=== PATIENT | female | born 1970 | race Caucasian/White ===

== ENCOUNTER → 2016-11-10 | Outpatient (CLI) | payer OTHER ==
--- NOTE | 2016-11-11 08:20 | MM ---
Reason for exam: screening (asymptomatic). Last mammogram was performed 1 year ago. History: Patient history of other cancer and is nulliparous. Taking hormonal contraceptives for 27 years beginning at age 19. Physical Findings: A clinical breast exam by your physician is recommended on an annual basis and results should be correlated with mammographic findings. MG 3D Screening Mammo W/Cad Bilateral CC and MLO view(s) were taken. Prior study comparison: November 04, 2015, bilateral MG 3d screening mammo w/cad. November 02, 2014, bilateral MG screening mammo w CAD. Finding: There is a 7 mm high density, oval mass in the right breast seen only on CC view, 5.2cm from the nipple. New finding since November 04, 2015 and November 02, 2014. ASSESSMENT: Incomplete: need additional imaging evaluation, BI-RAD 0 RECOMMENDATION: Ultrasound of the right breast. [facility] will attempt to contact patient to return for ultrasound.
== END | disposition home or self-care (01) ==
LOC: RADMAMWWP 10:49
PROVIDERS: ATTEND Family Medicine
DX: Z12.31 Encounter for screening mammogram for malignant neoplasm of breast (principal)
CPT/HCPCS: 77063; G0202

== ENCOUNTER → 2016-11-17 | Outpatient (CLI) | payer OTHER ==
--- NOTE | 2016-11-18 07:37 | USB ---
Reason for exam: additional evaluation requested from abnormal screening. History: Patient history of other cancer and is nulliparous. Taking hormonal contraceptives for 27 years beginning at age 19. Physical Findings: Nurse Summary: 0.5cm round nodule soft, movable right breast 1 o'clock (nurse mm). US Breast Workup Limited RT Right breast ultrasound demonstrates a 3 x 2 x 3mm lesion too small to characterize at 10 o'clock, 5.2cm from nipple. These results were verbally communicated with the patient and result sheet given to the patient on 11/17/16. ASSESSMENT: Benign, BI-RAD 2 RECOMMENDATION: Return to routine screening mammogram schedule for both breasts.
== END | disposition home or self-care (01) ==
LOC: RADUSWWP 14:15
PROVIDERS: ATTEND Family Medicine
DX: R92.8 Other abnormal and inconclusive findings on diagnostic imaging of breast (principal)

== ENCOUNTER 2017-07-14 13:34 | Inpatient (IN) | payer OTHER ==
[2017-07-14] MEDS ORDERED: NITROGLYCERIN SL TABS 0.4 MG TAB SUBLINGUAL PRN (19:25)
[2017-07-14] MEDS ORDERED: SODIUM CHLORIDE 0.9% 1,000 ML in EMPTY BAG 1 BAG IV ONE (19:25)
[2017-07-14 20:20] LABS: Basophils % (A) 0 %; CHCM 32.2; Eosinophils # (A) 0.1 k/uL (0-0.7); Eosinophils % (A) 1 %; HCT 46.3 % (34.0-46.0); HDW 2.24; Luc # (Auto) 0.18; Luc % (Auto) 1; Lymphocytes # (A) 0.7 k/uL (1.0-4.8); Lymphocytes % (A) 3 %; MCH 32.2 pg (25.0-35.0); MCHC 32.3 g/dL (31.0-37.0); MCV 99.8 fL (80.0-100.0); Mean Platelet Volume 7.3; Monocytes # (A) 0.9 k/uL (0-1.0); Monocytes % (A) 5 %; Neutrophils # (A) 17.8 k/uL (1.3-7.7); Neutrophils % (A) 90 %; RBC 4.64 m/uL (3.80-5.40); RDW 13.8 % (11.5-15.5); WBC 19.6 k/uL (3.8-10.6); WBC (Perox) 19.76
[2017-07-14 20:21] LABS: INR 1.2 (<1.2); Prothrombin Time 11.7 sec (9.0-12.0)
[2017-07-14 20:22] LABS: Anion Gap 11 mmol/L; Blood Urea Nitrogen 33 mg/dL (7-17); Calcium 10.3 mg/dL (8.4-10.2); Carbon Dioxide 27 mmol/L (22-30); Chloride 102 mmol/L (98-107); Glucose 149 mg/dL (74-99); Non-African American GFR(MDRD) >60 (>60 ml/min/1.73 sqM); Potassium 3.9 mmol/L (3.5-5.1); Sodium 140 mmol/L (137-145)
[2017-07-14 20:24] VITALS: BMI 24.6
[2017-07-14 21:26] LABS: Glucose,Whole Blood 132 mg/dL (75-99)
[2017-07-14] MEDS ORDERED: guaiFENesin 600 MG TABLET.ER PO PRN (21:33)
[2017-07-14] MEDS: METOPROLOL TARTRATE 12.5 MG TAB PO SCH (21:47)
[2017-07-14] MEDS: HEPARIN SODIUM,PORCINE 5,000 UNIT/ML 1 ML VIAL SQ SCH (21:48)
[2017-07-14] MEDS: SERTRALINE 50 MG TAB PO SCH (23:51)
[2017-07-14] MEDS: methylPREDNISolone SOD SUCCI 40 MG/ML 1 ML VIAL IV SCH (23:54)
[2017-07-15 06:00] LABS: Glucose,Whole Blood 163 mg/dL (75-99)
[2017-07-15] MEDS ORDERED: ASPIRIN 325 MG TAB PO ONE (06:00)
[2017-07-15] MEDS ORDERED: ATORVASTATIN 80 MG TAB PO ONE (06:00)
[2017-07-15] MEDS: METOPROLOL TARTRATE 12.5 MG TAB PO SCH ×2 (06:22→20:45)
[2017-07-15] MEDS: LOSARTAN 25 MG TAB PO SCH (06:23)
[2017-07-15] MEDS: INSULIN LISPRO (humaLOG) 300 UNIT/3 ML VIAL SQ SCH ×5 (06:25→20:45)
[2017-07-15] MEDS: HEPARIN SODIUM,PORCINE 5,000 UNIT/ML 1 ML VIAL SQ SCH ×2 (07:54→20:45)
[2017-07-15] MEDS: methylPREDNISolone SOD SUCCI 40 MG/ML 1 ML VIAL IV SCH (07:55)
[2017-07-15] MEDS: LEVOFLOXACIN 500 MG TAB PO SCH (07:55)
[2017-07-15] MEDS: BUDESONIDE 0.5 MG/2 ML NEBU INHALATION SCH ×2 (08:04→20:11)
[2017-07-15] MEDS: IPRATROPIUM-ALBUTEROL 3 ML NEB INHALATION SCH ×4 (08:04→20:11)
[2017-07-15] MEDS ORDERED: BUDESONIDE 0.5 MG/2 ML NEBU INHALATION SCH (09:00)
[2017-07-15] MEDS ORDERED: fentaNYL (PF) 50 MCG/ML 2 ML AMP ONE (09:05)
[2017-07-15] MEDS ORDERED: MIDAZOLAM 2 MG/2 ML VIAL ONE (09:05)
[2017-07-15] MEDS ORDERED: LIDOCAINE 2% INJ 20 MG/ML (20 ML MDV) ONE (09:05)
[2017-07-15] MEDS ORDERED: MIDAZOLAM 2 MG/2 ML VIAL IVP ONE (09:08)
[2017-07-15] MEDS ORDERED: fentaNYL (PF) 50 MCG/ML 2 ML AMP IV ONE (09:08)
[2017-07-15] MEDS ORDERED: LIDOCAINE 2% INJ 20 MG/ML SQ ONE (09:11)
[2017-07-15] MEDS ORDERED: IV FLUID CONTINUATION 900 ML IV ONE (09:11)
[2017-07-15] MEDS ORDERED: IOHEXOL 350 MG/ML 125ML BOTTLE INJ ONE (09:20)
[2017-07-15] MEDS ORDERED: RX INFO: IV CONTRAST WAS GIVEN 1 EACH MISC MISCELLANE PRN (09:27)
[2017-07-15] MEDS ORDERED: SODIUM CHLORIDE 0.9% 1,000 ML IV SCH (09:30)
--- NOTE | 2017-07-15 09:37 | P.OP ---
Date of Procedure: 07/15/17 Preoperative Diagnosis: Cardiomyopathy with congestive heart failure Postoperative Diagnosis: Nonischemic cardiomyopathy Normal coronary arteries Procedure(s) Performed: [facility] [place] [facility] Anesthesia: MAC (Total sedation time is 15 minutes) Operative Findings: Referring Physician: Aura Indication: Cardiomyopathy with congestive heart failure Procedure Note: After obtaining informed consent left heart catheterization and coronary angiogram were performed via the right femoral artery using standard Priti catheters. Patient tolerated the procedure well without any obvious immediate complications. A femoral angiogram was obtained and Angio-Seal was deployed for hemostasis. Findings: Hemodynamics: Left ventricular end-diastolic pressure is 30 mm there is no significant gradient across aortic valve Left Ventriculogram: Not performed Angiographic Data:] #1 Left Main Coronary Artery: Normal size vessel and is free of stenosis #2 Left Anterior Descending Coronary Artery: Normal vessel and diagonal branches are free of stenosis as is the LAD #3 Circumflex Coronary Artery: Nondominant vessel and is free of stenosis #4 Right Coronary Artery: Large dominant vessel and is free of stenosis Conclusions: #1: Normal coronary arteries #2: Elevated left ventricular end-diastolic pressure Plan: Patient has nonischemic cardiomyopathy this could be due to idiopathic dilated cardiomyopathy tachycardia mediated cardiomyopathy could be related to recent stress with the of her mother and a friend or could be due to the bronchitis that she had Her management is going to be in the form of beta blockers steven inhibitors and Lanoxin and diuretics . I will reassess her LV function 6 months later and if she still has LV dysfunction she will need AICD.
[2017-07-15] MEDS: POTASSIUM CHLORIDE ER 20 MEQ TAB.ER PO SCH (11:30)
[2017-07-15] MEDS: FUROSEMIDE 40 MG TAB PO SCH (11:30)
[2017-07-15] MEDS: DIGOXIN 250 MCG TAB PO SCH (11:31)
[2017-07-15 11:57] LABS: Glucose,Whole Blood 176 mg/dL (75-99)
--- NOTE | 2017-07-15 12:28 | P.HPIM ---
History of Present Illness H&P Date: 07/15/17 Chief Complaint: shortness of breath This is a 46-year-old Cacasian female patient of Dr. Nicolle Corcoran with history of generalized anxiety disorder, recurrent depression. She initially presesnted to [facility] from Dr. NAVEEN Newton's office with dyspnea and productive cough. She follows with Dr. NAVEEN Newton and underwent bronchoscopy on July 07. She has been treated as an outpatient with antibiotics and steroids for pneumonia in April. She was admitted to [facility] for acute hypoxic respiratory failure with sepsis due to pneumonia and started on IV antibiotics with Levaquin and Rocephin, IV steroids and nebulizer treatments. CTA was done on 07/12 with suggested of perihilar infiltrates suggesting atypical pneumonia but pulmonary edema could not be excluded. She was seen by cardiology for fluid overload and echo showed EF of 30%. Cardiology recommended transfer to [facility] for heart catheterization. Patient cardiac cath suggested no coronary artery disease but increased end-diastolic pressure likely secondary to nonischemic cardiomyopathy either related to tachycardia or stress as patient has just lost her mother and a friend in the past month. On my evaluation, patient was free of chest pain, denies any shortness of breath or productive cough. Patient was laying flat in bed post cardiac catheterization. She felt tired but denies any dizziness. Patient did well post cardiac catheterization. Patient states she has been healthy most of her life but for the past 1 month she has been suffering for pneumonia. Prior to coming to the hospital she was on vacation as her employer told her to take some rest. On questioning of stress, patient didn't want to talk about this topic, states she has lost her best friend and her mother in the past month and is taking medication to deal with her anxiety. She requested me to change the topic. Patient denies any depression but is eager to be released from the hospital Review of Systems Constitutional: Denies chills, Denies fever, Denies lethargy, Denies malaise, Denies poor appetite, Denies weakness, Denies weight loss Eyes: denies decreased vision, denies diplopia, denies discharge, denies pain Ears: deny: decreased hearing Ears, nose, mouth and throat: Denies dental pain, Denies headache, Denies nasal discharge, Denies nose pain Cardiovascular: Denies chest pain, Denies decreased exercise tolerance, Denies edema, Denies high blood pressure, Denies irregular heart beat, Denies palpitations, Denies paroxysmal nocturnal dyspnea, Denies rapid heart beat, Denies shortness of breath Respiratory: Denies congestion, Denies cough, Denies cough with sputum, Denies dyspnea, Denies home oxygen, Denies wheezing Gastrointestinal: Denies abdominal pain, Denies change in bowel habits, Denies coffee ground emesis, Denies early satiety, Denies excessive gas, Denies heartburn, Denies hematemesis, Denies hematochezia, Denies loss of appetite, Denies nausea, Denies vomiting Genitourinary: Denies dysuria, Denies flank pain, Denies kidney stones, Denies menorrhagia, Denies urgency, Denies urinary frequency Musculoskeletal: Denies gait dysfunction, Denies limitation of motion, Denies morning stiffness, Denies muscle cramps Integumentary: Denies rash, Denies wounds, Denies brittle nails, Denies change in hair/nails, Denies darkening of skin Neurological: Denies balance difficulties, Denies change in speech, Denies double vision, Denies gait dysfunction, Denies loss of vision, Denies motor disturbance, Denies numbness, Denies paralysis, Denies paresthesias, Denies seizures Psychiatric: Denies anxiety, Denies depression Endocrine: Denies excessive sweating, Denies excessive thirst, Denies high blood sugars, Denies palpitations Hematologic/Lymphatic: Denies easy bruising, Denies lymphadenopathy Past Medical History Past Medical History: Heart Failure Additional Past Medical History / Comment(s): blood clots in the skin started last May History of Any Multi-Drug Resistant Organisms: None Reported Past Surgical History: No Surgical Hx Reported Past Anesthesia/Blood Transfusion Reactions: No Reported Reaction Past Psychological History: Depression Smoking Status: Current every day smoker (patient smokes 1 pack a day for 25 years and hasn't smoked since last 2 week and would like to continue it.) Past Alcohol Use History: None Reported Past Drug Use History: None Reported - Past Family History Mother Family Medical History: Cancer (endometrial cancer, at the age of 74), Diabetes Mellitus Additional Family Medical History / Comment(s): CABG Father Family Medical History: Coronary Artery Disease (CAD) (coronary artery disease at age 75) Additional Family Medical History / Comment(s): Stents Medications and Allergies Home Medications Medication Instructions Recorded Confirmed Type Albuterol Inhaler [Ventolin Hfa 2 puff INHALATION RT-Q6H PRN 07/14/17 07/14/17 History Inhaler] Beclomethasone Dip 80 Mcg/Puff 1 puff INHALATION RT-BID 07/14/17 07/14/17 History [Qvar 80 mcg] Biotin 5 mg PO DAILY 07/14/17 07/14/17 History Microgestin Unknown Dose 1 tab PO DAILY 07/14/17 07/14/17 History Sertraline HCl [Zoloft] 50 mg PO DAILY 07/14/17 07/14/17 History Allergies Allergy/AdvReac Type Severity Reaction Status Date / Time No Known Allergies Allergy Verified 07/14/17 21:05 Physical Exam Vitals: Vital Signs Temp Pulse Pulse Resp BP Pulse Ox 07/15/17 08:18 104 H 07/15/17 08:09 98.0 F 99 16 113/79 97 07/15/17 08:05 104 H 07/15/17 08:00 98.0 F 99 16 113/79 97 07/15/17 04:00 97.3 F L 100 16 112/76 97 07/14/17 20:04 97.0 F L 103 H 20 113/67 95 Intake and Output 07/14/17 07/15/17 07/15/17 22:59 06:59 14:59 Intake Total 400 Balance 400 Intake: Intake, IV Titration 400 Amount Sodium Chloride 0.9% 1, 400 000 ml In Empty Bag 1 bag @ 1 ML/KG/HR 58.5 mls/hr IV .Q17H6M ONE Rx#: [id number] Other: Voiding Method Toilet Toilet # Voids 1 Weight 57.153 kg 58.5 kg - Constitutional General appearance: cooperative, no acute distress, obese - EENT Eyes: anicteric sclerae, PERRLA, normal appearance ENT: hearing grossly normal - Neck Neck: no lymphadenopathy, normal ROM, no other, no rigidity, no stridor, no thyromegaly - Respiratory Respiratory: bilateral: CTA, negative: diminished, dullness, rales, rhonchi - Cardiovascular Rhythm: regular Heart sounds: normal: S1, S2 Abnormal Heart Sounds: no systolic murmur, no diastolic murmur, no rub, no S3 Gallop, no S4 Gallop, no click, no other Site of catheterization in the right groin appeared normal with no signs of bleeding - Gastrointestinal General gastrointestinal: normal bowel sounds, soft - Integumentary Integumentary: no rash - Neurologic Neurologic: CNII-XII intact - Musculoskeletal Musculoskeletal: gait normal, strength equal bilaterally - Psychiatric Psychiatric: A&O x's 3, appropriate affect Results CBC & Chem 7: 07/14/17 19:57 07/14/17 19:57 Labs: Abnormal Lab Results - Last 24 Hours (Table) 07/14/17 07/14/17 07/14/17 Range/Units 19:57 19:57 19:57 WBC 19.6 H (3.8-10.6) k/uL Hct 46.3 H (34.0-46.0) % Plt Count 467 H (150-450) k/uL Neutrophils # 17.8 H (1.3-7.7) k/uL Lymphocytes # 0.7 L (1.0-4.8) k/uL INR 1.2 H (<1.2) BUN 33 H (7-17) mg/dL Glucose 149 H (74-99) mg/dL POC Glucose (mg/dL) (75-99) mg/dL Calcium 10.3 H (8.4-10.2) mg/dL 07/14/17 07/15/17 Range/Units 21:03 05:58 WBC (3.8-10.6) k/uL Hct (34.0-46.0) % Plt Count (150-450) k/uL Neutrophils # (1.3-7.7) k/uL Lymphocytes # (1.0-4.8) k/uL INR (<1.2) BUN (7-17) mg/dL Glucose (74-99) mg/dL POC Glucose (mg/dL) 132 H 163 H (75-99) mg/dL Calcium (8.4-10.2) mg/dL Thrombosis Risk Factor Assmnt - DVT/VTE Prophylaxis DVT/VTE Prophylaxis: Pharmacologic Prophylaxis ordered - Choose All That Apply Any of the Below Risk Factors Present?: Yes Each Factor Represents 1 point: Age 41-60 years Thrombosis Risk Factor Assessment Total Risk Factor Score: 1 Thrombosis Risk Factor Assessment Level: Low Risk Assessment and Plan Plan: Acute respiratory failure, likely secondary to bilateral atypical pneumonia with concern for pulmonary edema along with hypersensitivity pneumonitis - Patient was treated with Levaquin and Rocephin for the pneumonia - DC Rocephin, continue Levaquin - Patient has no wheezing on examination, Solu-Medrol discontinued patient switched to prednisone today - Continue duo nebs every 6 hours when necessary shortness of breath - Continue incentive spirometry - Continue Mucinex 600 every 12 - Pulmicort 0.5 mg every 12 hours - Patient is a smoker, and counseled on quitting smoking but patient states she will resume it on discharge = Continue Lasix 40 mg daily for presumed pulmonary edema from heart failure Nonischemic cardiomyopathy with EF 30% - Likely related to stress cardiomyopathy other differential include tachycardia induced cardiomyopathy. Patient has just lost a family member in the past 1 month and is under a lot of stress - Cardiac catheterization done on 07/15 suggested no coronary artery disease but increased end diastolic pressures - Continue digoxin 250 g daily, aspirin 81 mg daily, atorvastatin 40 mg daily, losartan 25 mg by mouth daily, metoprolol 12.5 mg by mouth twice daily - Continue Lasix 40 mg by mouth daily - Continue medical management for the next 6 months followed by appointment with Dr. Pina for consideration of AICD if no improvement in the cardiac function Nicotine dependence quit 2 weeks ago - Patient plans to resume it post discharge - Patient counseled on the risk associated with the continuation of the smoking but would like to continue it post discharge regardless Depression - Continue Zoloft GI prophylaxis Continue Pepcid by mouth daily DVT prophylaxis Continue mechanical prophylaxis with IVC Disposition likely discharge tomorrow after reviewing patient's labs and physical examination.
[2017-07-15] MEDS: predniSONE 20 MG TAB PO SCH (13:08)
[2017-07-15 20:45] LABS: Glucose,Whole Blood 275 mg/dL (75-99)
[2017-07-15] MEDS: SERTRALINE 50 MG TAB PO SCH (20:45)
[2017-07-16 03:35] VITALS: RESP 16
[2017-07-16] MEDS: INSULIN LISPRO (humaLOG) 300 UNIT/3 ML VIAL SQ SCH ×2 (06:14→11:55)
[2017-07-16 06:22] LABS: Glucose,Whole Blood 111 mg/dL (75-99)
[2017-07-16 06:43] LABS: Basophils % (A) 0 %; CH 32.3; CHCM 32.3; Eosinophils % (A) 0 %; HCT 44.1 % (34.0-46.0); HDW 2.21; HGB 13.7 gm/dL (11.4-16.0); Luc # (Auto) 0.09; Luc % (Auto) 1; Lymphocytes # (A) 1.8 k/uL (1.0-4.8); Lymphocytes % (A) 14 %; MCH 31.2 pg (25.0-35.0); MCHC 31.1 g/dL (31.0-37.0); MCV 100.5 fL (80.0-100.0); Macrocytosis Slight; Mean Platelet Volume 8.7; Monocytes # (A) 0.8 k/uL (0-1.0); Monocytes % (A) 6 %; Neutrophils # (A) 9.8 k/uL (1.3-7.7); Neutrophils % (A) 78 %; RBC 4.38 m/uL (3.80-5.40); RDW 14.5 % (11.5-15.5); WBC 12.5 k/uL (3.8-10.6); WBC (Perox) 12.49
[2017-07-16 06:57] LABS: ALT 28 U/L (9-52); AST 11 U/L (14-36); Alkaline Phosphatase 65 U/L (38-126); Anion Gap 8 mmol/L; Blood Urea Nitrogen 25 mg/dL (7-17); Calcium 9.2 mg/dL (8.4-10.2); Carbon Dioxide 24 mmol/L (22-30); Chloride 107 mmol/L (98-107); Glucose 124 mg/dL (74-99); Non-African American GFR(MDRD) >60 (>60 ml/min/1.73 sqM); Potassium 4.7 mmol/L (3.5-5.1); Sodium 139 mmol/L (137-145); Total Bilirubin 0.3 mg/dL (0.2-1.3); Total Protein 5.7 g/dL (6.3-8.2)
[2017-07-16] MEDS: BUDESONIDE 0.5 MG/2 ML NEBU INHALATION SCH (07:21)
[2017-07-16] MEDS: IPRATROPIUM-ALBUTEROL 3 ML NEB INHALATION SCH ×2 (07:21→11:48)
[2017-07-16 07:35] VITALS: TEMP 98
[2017-07-16] MEDS: predniSONE 20 MG TAB PO SCH (08:24)
[2017-07-16] MEDS: LOSARTAN 25 MG TAB PO SCH (08:24)
[2017-07-16] MEDS: LEVOFLOXACIN 500 MG TAB PO SCH (08:24)
[2017-07-16] MEDS: POTASSIUM CHLORIDE ER 20 MEQ TAB.ER PO SCH (08:24)
[2017-07-16] MEDS: FUROSEMIDE 40 MG TAB PO SCH (08:24)
[2017-07-16] MEDS: METOPROLOL TARTRATE 12.5 MG TAB PO SCH (08:24)
[2017-07-16] MEDS: DIGOXIN 250 MCG TAB PO SCH (08:24)
[2017-07-16] MEDS: HEPARIN SODIUM,PORCINE 5,000 UNIT/ML 1 ML VIAL SQ SCH (08:25)
[2017-07-16] MEDS ORDERED: ASPIRIN 81 MG PO SCH (09:00)
[2017-07-16] MEDS ORDERED: ATORVASTATIN 40 MG TAB PO SCH (09:00)
[2017-07-16 11:48] LABS: Glucose,Whole Blood 125 mg/dL (75-99)
[2017-07-16 11:54] VITALS: BP 110/77; PULSE 89
--- NOTE | 2017-07-16 13:19 | P.PN ---
Subjective Progress Note Date: 07/16/17 Principal diagnosis: chest pain, pneumonia A pleasant 46-year-old female patient who was initially admitted to [facility] with dyspnea and productive cough diagnosed with acute hypoxic respiratory failure with sepsis due to pneumonia and started on IV antibiotics, IV steroids and nebulizer treatments. CTA was done on 07/12 that suggested perihilar infiltrates assessment atypical pneumonia by pulmonary edema could not be excluded. Cardiology was placed and consults for fluid overload. Echocardiogram showed an ejection fraction of 30%. She is recommended to transfer here to [facility] for heart catheterization. This was done yesterday by Dr. Desouza and showed normal coronary arteries but increased end-diastolic pressure likely secondary to nonischemic cardiomyopathy either related to tachycardia or stress as patient has lost her mother and friend in the past month. Upon examination, patient is resting comfortably in bed. She denies complaints of chest discomfort, shortness of breath, dizziness or lightheadedness. She is currently on aspirin 81 mg by mouth daily, digoxin 250 g by mouth daily, Lasix 40 mg by mouth daily, losartan 25 mg by mouth daily and metoprolol 25 mg by mouth twice a day. Objective - Vital Signs Vital signs: Vital Signs Temp 98.0 F 07/16/17 11:53 Pulse 89 07/16/17 11:53 Resp 16 07/16/17 11:53 BP 110/77 07/16/17 11:53 Pulse Ox 98 07/16/17 11:53 Intake & Output 07/15/17 07/16/17 07/16/17 18:59 06:59 18:59 Intake Total 1150 600 620 Output Total 300 Balance 1150 600 320 Weight 59.3 kg Intake: IV 50 Intake, IV Titration 600 Amount Sodium Chloride 0.9% 1, 600 000 ml @ 50 mls/hr IV . Q20H TG Rx#:[id number] Oral 500 600 620 Output: Urine 300 Other: Voiding Method Toilet Toilet Toilet # Voids 1 1 1 - Exam PHYSICAL EXAMINATION: HEENT: Head is atraumatic, normocephalic. Pupils equal, round. Neck is supple. There is no elevated jugular venous pressure. HEART EXAMINATION: Heart sounds regular, S1 and S2 normal. No murmur or gallop heard. CHEST EXAMINATION: Lungs are clear to auscultation and precussion. No chest wall tenderness is noted on palpation or with deep breathing. ABDOMEN: Soft, nontender. Bowel sounds are heard. No organomegaly noted. EXTREMITIES: 2+ peripheral pulses with no evidence of peripheral edema and no calf tenderness noted. Right groin puncture site is soft without ecchymosis or hematoma.. NEUROLOGIC patient is awake, alert and oriented x3. . - Labs CBC & Chem 7: 07/16/17 05:20 07/16/17 05:20 Labs: Abnormal Lab Results - Last 24 Hours (Table) 07/15/17 07/16/17 07/16/17 Range/Units 20:44 05:20 05:20 WBC 12.5 H (3.8-10.6) k/uL MCV 100.5 H (80.0-100.0) fL Neutrophils # 9.8 H (1.3-7.7) k/uL BUN 25 H (7-17) mg/dL Glucose 124 H (74-99) mg/dL POC Glucose (mg/dL) 275 H (75-99) mg/dL AST 11 L (14-36) U/L Total Protein 5.7 L (6.3-8.2) g/dL Albumin 3.2 L (3.5-5.0) g/dL 07/16/17 07/16/17 Range/Units 06:11 11:25 WBC (3.8-10.6) k/uL MCV (80.0-100.0) fL Neutrophils # (1.3-7.7) k/uL BUN (7-17) mg/dL Glucose (74-99) mg/dL POC Glucose (mg/dL) 111 H 125 H (75-99) mg/dL AST (14-36) U/L Total Protein (6.3-8.2) g/dL Albumin (3.5-5.0) g/dL Assessment and Plan Plan: Assessment and plan #1 nonischemic cardiomyopathy, unsure of exact etiology, could be secondary to tachycardia or stress ejection fraction 30% #2 acute respiratory failure, secondary to bilateral pneumonia and likely pulmonary edema #3 nicotine dependence, quit smoking approximately 2 weeks ago #4 depression and anxiety 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 She'll follow- up with Dr. Desouza in the office. Continue metoprolol, losartan, digoxin. ELECTRONICS TESTER note has been reviewed, I agree with a documented findings and plan of care. Patient was seen and examined.
--- NOTE | 2017-07-16 15:26 | P.DS ---
Providers Date of admission: 07/14/17 19:16 Expected date of discharge: 07/16/17 Attending physician: Layton Vitale Consults: 07/15/17 07:52 Consult Physician Urgent Consulting Provider: Pradeep Desouza Consult Reason/Comments: CARDIAC CATH Do you want consulting provider notified?: Already Contacted Primary care physician: [facility] Course: This is a 46-year-old Cacasian female patient of Dr. Nicolle Corcoran with history of generalized anxiety disorder, recurrent depression. She initially presesnted to [facility] from Dr. NAVEEN Newton's office with dyspnea and productive cough. She follows with Dr. NAVEEN Newton and underwent bronchoscopy on July 07. She has been treated as an outpatient with antibiotics and steroids for pneumonia in April. She was admitted to [facility] for acute hypoxic respiratory failure with sepsis due to pneumonia and started on IV antibiotics with Levaquin and Rocephin, IV steroids and nebulizer treatments. CTA was done on 07/12 with suggested of perihilar infiltrates suggesting atypical pneumonia but pulmonary edema could not be excluded. She was seen by cardiology for fluid overload and echo showed EF of 30%. Cardiology recommended transfer to [facility] for heart catheterization. Patient cardiac cath suggested no coronary artery disease but increased end-diastolic pressure likely secondary to nonischemic cardiomyopathy either related to tachycardia or stress as patient has just lost her mother and a friend in the past month. On my evaluation, patient was free of chest pain, denies any shortness of breath or productive cough. Patient was laying flat in bed post cardiac catheterization. She felt tired but denies any dizziness. Patient did well post cardiac catheterization. Patient states she has been healthy most of her life but for the past 1 month she has been suffering for pneumonia. Prior to coming to the hospital she was on vacation as her employer told her to take some rest. On questioning of stress, patient didn't want to talk about this topic, states she has lost her best friend and her mother in the past month and is taking medication to deal with her anxiety. She requested me to change the topic. Patient denies any depression but is eager to be released from the hospital 07/16: Heart catheterization shows no coronary artery disease but increased end- diastolic pressures. Dr. Pina recommends repeat echocardiogram and 6 months and consider AICD if no improvement of cardiac function. Patient states her breathing status is stable and she is anxious to be discharged home today. Cardiology has cleared her for discharge. Patient will be discharged home today in stable condition. Discharge diagnoses: Acute hypoxic respiratory failure, likely secondary to bilateral atypical pneumonia Nonischemic cardiomyopathy with EF 30%. Likely related to stress cardiomyopathy other differential include tachycardia induced cardiomyopathy. Patient has just lost a family member in the past 1 month and is under a lot of stress Nicotine dependence quit 2 weeks ago Depression, recurrent Discharge plan: Home Impression and plan of care have been directed as dictated by the signing physician. Lisa Kerr nurse practitioner acting as scribe for signing physician. CC: Dr. Nicolle Corcoran Patient Condition at Discharge: Good Plan - Discharge Summary New Discharge Prescriptions: New Aspirin 81 mg PO DAILY Atorvastatin [Lipitor] 40 mg PO DAILY #30 tab Digoxin [Lanoxin] 250 mcg PO DAILY #30 tab Furosemide [Lasix] 40 mg PO DAILY #30 tab guaiFENesin [Mucinex] 600 mg PO Q12HR PRN tab PRN Reason: Congestion Levofloxacin [Levaquin] 500 mg PO Q24H #5 tab Losartan [Cozaar] 25 mg PO DAILY #30 tab Metoprolol Tartrate [Lopressor] 25 mg PO BID #60 tab Nitroglycerin Sl Tabs [Nitrostat] 0.4 mg SUBLINGUAL Q5M PRN #25 tab PRN Reason: Chest Pain Potassium Chloride ER [K-Dur 20] 20 meq PO DAILY #30 tab predniSONE 10 mg PO DAILY #30 tab Continue Sertraline HCl [Zoloft] 50 mg PO DAILY Biotin 5 mg PO DAILY Beclomethasone Dip 80 Mcg/Puff [Qvar 80 mcg] 1 puff INHALATION RT-BID Albuterol Inhaler [Ventolin Hfa Inhaler] 2 puff INHALATION RT-Q6H PRN PRN Reason: Shortness Of Breath Norethindrone-E.estradiol-Iron [Microgestin Fe 1-20 Tablet] 1 tab PO DAILY Discharge Medication List Albuterol Inhaler [Ventolin Hfa Inhaler] 2 puff INHALATION RT-Q6H PRN 07/14/17 [ History] Beclomethasone Dip 80 Mcg/Puff [Qvar 80 mcg] 1 puff INHALATION RT-BID 07/14/17 [ History] Biotin 5 mg PO DAILY 07/14/17 [History] Sertraline HCl [Zoloft] 50 mg PO DAILY 07/14/17 [History] Norethindrone-E.estradiol-Iron [Microgestin Fe 1-20 Tablet] 1 tab PO DAILY 07/15 [History] Aspirin 81 mg PO DAILY 07/16/17 [Rx] Atorvastatin [Lipitor] 40 mg PO DAILY #30 tab 07/16/17 [Rx] Digoxin [Lanoxin] 250 mcg PO DAILY #30 tab 07/16/17 [Rx] Furosemide [Lasix] 40 mg PO DAILY #30 tab 07/16/17 [Rx] Levofloxacin [Levaquin] 500 mg PO Q24H #5 tab 07/16/17 [Rx] Losartan [Cozaar] 25 mg PO DAILY #30 tab 07/16/17 [Rx] Metoprolol Tartrate [Lopressor] 25 mg PO BID #60 tab 07/16/17 [Rx] Nitroglycerin Sl Tabs [Nitrostat] 0.4 mg SUBLINGUAL Q5M PRN #25 tab 07/16/17 [Rx ] Potassium Chloride ER [K-Dur 20] 20 meq PO DAILY #30 tab 07/16/17 [Rx] guaiFENesin [Mucinex] 600 mg PO Q12HR PRN tab 07/16/17 [Rx] predniSONE 10 mg PO DAILY #30 tab 07/16/17 [Rx] Follow up Appointment(s)/Referral(s): Nicolle Corcoran MD [STAFF PHYSICIAN] - 1 Week (Please follow up with primary care provider in the next week, prior to cardiology follow up.) Damien Newton MD [STAFF PHYSICIAN] - 1 Week (Please call to make an appointment) Pradeep Desouza MD [STAFF PHYSICIAN] - 1 Week (Please make follow up appointments with cardiology associates for a one week follow up.) Patient Instructions/Handouts: *Surgery [facility] - After Heart Catheterization - Inspector Final Assembly Conveyor Line Instructions, Left Heart Catheterization (DC), Heart Healthy Diet (DC), Hyperglycemia, Non-Diabetic (DC) Discharge Disposition: HOME SELF-CARE
[2017-07-16] MEDS ORDERED: METOPROLOL TARTRATE 25 MG TAB PO SCH (21:00)
== END 2017-07-16 12:45 | disposition home or self-care (01) | DRG 286 ==
LOC: 6SEL 19:16
PROVIDERS: ADMIT Internal Medicine Geriatric Medicine; ATTEND Internal Medicine Geriatric Medicine
PROC: B2111ZZ Fluoroscopy of Multiple Coronary Arteries using Low Osmolar Contrast (ICD-10-PCS; 2017-07-15)
PROC: 4A023N7 Measurement of Cardiac Sampling and Pressure, Left Heart, Percutaneous Approach (ICD-10-PCS; principal; 2017-07-15 08:47)
DX: I51.81 Takotsubo syndrome (principal); J18.9 Pneumonia, unspecified organism; I50.9 Heart failure, unspecified; F33.9 Major depressive disorder, recurrent, unspecified; R00.0 Tachycardia, unspecified; F41.1 Generalized anxiety disorder; F17.210 Nicotine dependence, cigarettes, uncomplicated; Z79.51 Long term (current) use of inhaled steroids; Z79.899 Other long term (current) drug therapy; Z87.01 Personal history of pneumonia (recurrent); Z82.49 Family history of ischemic heart disease and other diseases of the circulatory system
CPT/HCPCS: 80048; 80053; 85025; 85610; 93458; 94640

== ENCOUNTER 2017-07-26 07:20 | Emergency (ER) | payer OTHER ==
[2017-07-26 07:26] VITALS: RESP 18
[2017-07-26] MEDS ORDERED: SODIUM CHLORIDE 0.9% 500 ML IV ONE (07:40)
[2017-07-26] MEDS ORDERED: MORPHINE SULFATE 2 MG/ML SYRINGE IVP STA (07:40)
[2017-07-26] MEDS ORDERED: SODIUM CHLORIDE 0.9% 1,000 ML IV SCH (07:45)
--- NOTE | 2017-07-26 07:45 | ED ---
General Adult HPI - General Chief complaint: Extremity Problem,Nontraumatic Stated complaint: Allergic Reaction Time Seen by Provider: 07/26/17 07:28 Source: patient, RN notes reviewed, old records reviewed Mode of arrival: ambulatory Limitations: no limitations - History of Present Illness Initial comments: 46-year-old female presents for evaluation of bilateral lower extremity pain, as well as bilateral shoulder soreness. Patient reports the pain is10\10. Pain has been present for the past 2 days, steadily worsening. No trauma or overuse injury. Patient has recent diagnosis of pneumonia, nonischemic cardiomyopathy and had a heart catheterization on July 15. Patient did have right femoral access for this heart cath. Patient was found to have normal coronary arteries, reduced EF. In addition to diffuse bilateral lower extremity , Patient does report pain in her shoulders and upper extremities. Patient is currently taking atorvastatin, as well as several other medications for her recent diagnosis of nonischemic cardiomyopathy. Denies abdominal pain. Denies chest pain. Denies shortness of breath. Denies fever or chills. - Related Data Home Medications Medication Instructions Recorded Confirmed Albuterol Inhaler [Ventolin Hfa 2 puff INHALATION RT-Q6H PRN 07/14/17 07/26/17 Inhaler] Beclomethasone Dip 80 Mcg/Puff 1 puff INHALATION RT-BID 07/14/17 07/26/17 [Qvar 80 mcg] Biotin 5 mg PO DAILY 07/14/17 07/26/17 Sertraline HCl [Zoloft] 50 mg PO DAILY 07/14/17 07/26/17 Norethindrone-E.estradiol-Iron 1 tab PO DAILY 07/15/17 07/26/17 [Microgestin Fe 1-20 Tablet] predniSONE See Taper PO DAILY 07/26/17 07/26/17 Previous Rx's Medication Instructions Recorded Aspirin 81 mg PO DAILY 07/16/17 Atorvastatin [Lipitor] 40 mg PO DAILY #30 tab 07/16/17 Digoxin [Lanoxin] 250 mcg PO DAILY #30 tab 07/16/17 Furosemide [Lasix] 40 mg PO DAILY #30 tab 07/16/17 Losartan [Cozaar] 25 mg PO DAILY #30 tab 07/16/17 Metoprolol Tartrate [Lopressor] 25 mg PO BID #60 tab 07/16/17 Nitroglycerin Sl Tabs [Nitrostat] 0.4 mg SUBLINGUAL Q5M PRN #25 tab 07/16/17 Potassium Chloride ER [K-Dur 20] 20 meq PO DAILY #30 tab 07/16/17 guaiFENesin [Mucinex] 600 mg PO Q12HR PRN tab 07/16/17 HYDROcodone/APAP 5-325MG [Wasta 1 tab PO Q6HR PRN #12 tab 07/26/17 5-325] Sulfamethox-Tmp 800-160Mg [Bactrim 1 tab PO Q12HR #28 tab 07/26/17 DS 800-160 mg] Allergies Allergy/AdvReac Type Severity Reaction Status Date / Time No Known Allergies Allergy Verified 07/26/17 08:05 Review of Systems ROS Statement: Those systems with pertinent positive or pertinent negative responses have been documented in the HPI. ROS Other: All systems not noted in ROS Statement are negative. Past Medical History Past Medical History: Heart Failure, Pneumonia Additional Past Medical History / Comment(s): blood clots in the skin started last May History of Any Multi-Drug Resistant Organisms: None Reported Past Surgical History: No Surgical Hx Reported, Heart Catheterization Past Anesthesia/Blood Transfusion Reactions: No Reported Reaction Past Psychological History: Depression Smoking Status: Former smoker Past Alcohol Use History: None Reported Past Drug Use History: None Reported - Past Family History Mother Family Medical History: Cancer (endometrial cancer, at the age of 74), Diabetes Mellitus Additional Family Medical History / Comment(s): CABG Father Family Medical History: Coronary Artery Disease (CAD) (coronary artery disease at age 75) Additional Family Medical History / Comment(s): Stents General Exam Limitations: no limitations General appearance: alert Head exam: Present: atraumatic, normocephalic Eye exam: Present: normal appearance, PERRL ENT exam: Present: normal exam Neck exam: Present: normal inspection. Absent: tenderness Respiratory exam: Present: normal lung sounds bilaterally. Absent: respiratory distress Cardiovascular Exam: Present: regular rate, normal rhythm GI/Abdominal exam: Present: soft. Absent: distended, tenderness Extremities exam: Present: normal inspection, tenderness (Diffuse tenderness to palpation.), normal capillary refill, other (Femoral pulse 2+ bilateral, no thrill, bilateral DP pulses 2+). Absent: pedal edema, joint swelling Neurological exam: Present: alert, oriented X3 Psychiatric exam: Present: normal affect, normal mood Skin exam: Present: warm, dry, intact. Absent: cyanosis, diaphoretic Course Vital Signs 07/26/17 07:23 Temperature 98.0 F Pulse Rate 87 Respiratory 18 Rate Blood Pressure 109/71 O2 Sat by Pulse 100 Oximetry - Reevaluation(s) Reevaluation #1: 07/26/17 09:52 On reevaluation, after IV hydration morphine patient is feeling much better. Medical Decision Making - Medical Decision Making 46-year-old female presenting for chief complaint of muscle pain and weakness. Primarily the lower extremities but also in the upper extremities. Patient was recently started on atorvastatin. She believes this is the cause of her symptoms. Laboratory studies are obtained, there is elevation in white count, however patient is currently on steroids. No elevation in creatinine kinase. Electrolytes are within normal limits. Urinalysis does show signs of infection. Urine culture will be obtained and patient will be started on antibiotics for UTI. She is instructed to hold off on taking her atorvastatin until she can follow up with cardiology. Diagnosis: Myalgia, UTI - Lab Data Result diagrams: 07/26/17 07:55 07/26/17 07:55 Lab Results 07/26/17 07/26/17 07/26/17 Range/Units 07:55 07:55 07:55 WBC 15.3 H (3.8-10.6) k/uL RBC 4.63 (3.80-5.40) m/uL Hgb 14.4 (11.4-16.0) gm/dL Hct 45.2 (34.0-46.0) % MCV 97.7 (80.0-100.0) fL MCH 31.1 (25.0-35.0) pg MCHC 31.8 (31.0-37.0) g/dL RDW 13.1 (11.5-15.5) % Plt Count 461 H (150-450) k/uL Neutrophils % 67 % Lymphocytes % 25 % Monocytes % 5 % Eosinophils % 1 % Basophils % 0 % Neutrophils # 10.3 H (1.3-7.7) k/uL Lymphocytes # 3.8 (1.0-4.8) k/uL Monocytes # 0.7 (0-1.0) k/uL Eosinophils # 0.1 (0-0.7) k/uL Basophils # 0.1 (0-0.2) k/uL PT 10.4 (9.0-12.0) sec INR 1.0 (<1.2) APTT 22.1 (22.0-30.0) sec Sodium 141 (137-145) mmol/L Potassium 4.9 (3.5-5.1) mmol/L Chloride 108 H (98-107) mmol/L Carbon Dioxide 25 (22-30) mmol/L Anion Gap 8 mmol/L BUN 33 H (7-17) mg/dL Creatinine 0.63 (0.52-1.04) mg/dL Est GFR (MDRD) Af Amer >60 (>60 ml/min/1.73 sqM) Est GFR (MDRD) Non-Af >60 (>60 ml/min/1.73 sqM) Glucose 90 (74-99) mg/dL Calcium 9.8 (8.4-10.2) mg/dL Total Bilirubin 0.2 (0.2-1.3) mg/dL AST 20 (14-36) U/L ALT 47 (9-52) U/L Alkaline Phosphatase 78 (38-126) U/L Creatine Kinase 32 (30-135) U/L C-Reactive Protein <5.0 (<10.0) mg/L Total Protein 6.3 (6.3-8.2) g/dL Albumin 3.8 (3.5-5.0) g/dL Urine Color Urine Appearance (Clear) Urine pH (5.0-8.0) Ur Specific [place] (1.001-1.035) Urine Protein (Negative) Urine Glucose (UA) (Negative) Urine Ketones (Negative) Urine Blood (Negative) Urine Nitrite (Negative) Urine Bilirubin (Negative) Urine Urobilinogen (<2.0) mg/dL Ur Leukocyte Esterase (Negative) Urine RBC (0-5) /hpf Urine WBC (0-5) /hpf Ur Squamous Epith Cells (0-4) /hpf Urine Bacteria (None) /hpf Urine Mucus (None) /hpf 07/26/17 Range/Units 09:25 WBC (3.8-10.6) k/uL RBC (3.80-5.40) m/uL Hgb (11.4-16.0) gm/dL Hct (34.0-46.0) % MCV (80.0-100.0) fL MCH (25.0-35.0) pg MCHC (31.0-37.0) g/dL RDW (11.5-15.5) % Plt Count (150-450) k/uL Neutrophils % % Lymphocytes % % Monocytes % % Eosinophils % % Basophils % % Neutrophils # (1.3-7.7) k/uL Lymphocytes # (1.0-4.8) k/uL Monocytes # (0-1.0) k/uL Eosinophils # (0-0.7) k/uL Basophils # (0-0.2) k/uL PT (9.0-12.0) sec INR (<1.2) APTT (22.0-30.0) sec Sodium (137-145) mmol/L Potassium (3.5-5.1) mmol/L Chloride (98-107) mmol/L Carbon Dioxide (22-30) mmol/L Anion Gap mmol/L BUN (7-17) mg/dL Creatinine (0.52-1.04) mg/dL Est GFR (MDRD) Af Amer (>60 ml/min/1.73 sqM) Est GFR (MDRD) Non-Af (>60 ml/min/1.73 sqM) Glucose (74-99) mg/dL Calcium (8.4-10.2) mg/dL Total Bilirubin (0.2-1.3) mg/dL AST (14-36) U/L ALT (9-52) U/L Alkaline Phosphatase (38-126) U/L Creatine Kinase (30-135) U/L C-Reactive Protein (<10.0) mg/L Total Protein (6.3-8.2) g/dL Albumin (3.5-5.0) g/dL Urine Color Yellow Urine Appearance Cloudy H (Clear) Urine pH 5.5 (5.0-8.0) Ur Specific [place] 1.026 (1.001-1.035) Urine Protein Trace H (Negative) Urine Glucose (UA) Negative (Negative) Urine Ketones Negative (Negative) Urine Blood Trace H (Negative) Urine Nitrite Negative (Negative) Urine Bilirubin Negative (Negative) Urine Urobilinogen <2.0 (<2.0) mg/dL Ur Leukocyte Esterase Large H (Negative) Urine RBC 5 (0-5) /hpf Urine WBC 133 H (0-5) /hpf Ur Squamous Epith Cells 9 H (0-4) /hpf Urine Bacteria Rare H (None) /hpf Urine Mucus Rare H (None) /hpf Disposition Clinical Impression: Myalgia, UTI (urinary tract infection) Disposition: HOME SELF-CARE Condition: Good Instructions: Musculoskeletal Pain (ED), Urinary Tract Infection in Women (ED) Prescriptions: HYDROcodone/APAP 5-325MG [Wasta 5-325] 1 tab PO Q6HR PRN #12 tab PRN Reason: Pain Sulfamethox-Tmp 800-160Mg [Bactrim DS 800-160 mg] 1 tab PO Q12HR #28 tab Referrals: Nicolle Corcoran MD [Primary Care Provider] - 1-2 days Time of Disposition: 09:55
[2017-07-26 08:12] LABS: Basophils # (A) 0.1 k/uL (0-0.2); Basophils % (A) 0 %; CH 31.1; CHCM 31.9; Eosinophils # (A) 0.1 k/uL (0-0.7); Eosinophils % (A) 1 %; HCT 45.2 % (34.0-46.0); HGB 14.4 gm/dL (11.4-16.0); Luc # (Auto) 0.31; Luc % (Auto) 2; Lymphocytes # (A) 3.8 k/uL (1.0-4.8); Lymphocytes % (A) 25 %; MCH 31.1 pg (25.0-35.0); MCHC 31.8 g/dL (31.0-37.0); MCV 97.7 fL (80.0-100.0); Monocytes # (A) 0.7 k/uL (0-1.0); Monocytes % (A) 5 %; Neutrophils # (A) 10.3 k/uL (1.3-7.7); Neutrophils % (A) 67 %; RBC 4.63 m/uL (3.80-5.40); RDW 13.1 % (11.5-15.5); WBC 15.3 k/uL (3.8-10.6); WBC (Perox) 15.08
[2017-07-26 08:28] LABS: ALT 47 U/L (9-52); AST 20 U/L (14-36); Alkaline Phosphatase 78 U/L (38-126); Anion Gap 8 mmol/L; Blood Urea Nitrogen 33 mg/dL (7-17); Calcium 9.8 mg/dL (8.4-10.2); Carbon Dioxide 25 mmol/L (22-30); Chloride 108 mmol/L (98-107); Creatine Kinase 32 U/L (30-135); Glucose 90 mg/dL (74-99); Non-African American GFR(MDRD) >60 (>60 ml/min/1.73 sqM); Potassium 4.9 mmol/L (3.5-5.1); Sodium 141 mmol/L (137-145); Total Bilirubin 0.2 mg/dL (0.2-1.3); Total Protein 6.3 g/dL (6.3-8.2)
[2017-07-26 08:40] LABS: Partial Thromboplastin Time 22.1 sec (22.0-30.0); Prothrombin Time 10.4 sec (9.0-12.0)
[2017-07-26 08:45] LABS: C Reactive Protein <5.0 mg/L (<10.0)
[2017-07-26 09:40] LABS: Appearance,Urine Cloudy (Clear); Bacteria,Urine Rare /hpf; Bilirubin,Urine Negative (Negative); Glucose,Urine (UA) Negative (Negative); Ketones,Urine Negative (Negative); Leukocyte Esterase,Urine Large (Negative); Mucus,Urine Rare /hpf; Nitrite,Urine Negative (Negative); PH, Urine 5.5 (5.0-8.0); Particle Count 3403; Protein,Urine Trace (Negative); RBC,Urine 5 /hpf (0-5); Specific Gravity,Urine 1.026 (1.001-1.035); Squamous Epithelial Cell,Urine 9 /hpf (0-4); UA Billing (MACRO vs. MICRO) MICRO; Urobilinogen,Urine <2.0 mg/dL (<2.0); WBC,Urine 133 /hpf (0-5)
[2017-07-26 09:54] VITALS: BP 118/75; PULSE 89
[2017-07-26 10:23] VITALS: TEMP 98.3
== END 2017-07-26 10:08 | disposition home or self-care (01) ==
LOC: EC 07:20
DX: M79.1 Myalgia (principal); N39.0 Urinary tract infection, site not specified; R53.1 Weakness; I50.9 Heart failure, unspecified; F32.9 Major depressive disorder, single episode, unspecified; Z87.891 Personal history of nicotine dependence; Z79.51 Long term (current) use of inhaled steroids; Z79.3 Long term (current) use of hormonal contraceptives; Z79.52 Long term (current) use of systemic steroids; Z79.899 Other long term (current) drug therapy
CPT/HCPCS: 99284 ×2; 96374 ×2; 96361 ×3; 36415; 80053; 82550; 85025; 85610; 85730; 86140; 81001; J2270

== ENCOUNTER → 2017-11-16 | Outpatient (CLI) | payer OTHER ==
--- NOTE | 2017-11-17 10:50 | MM ---
Reason for exam: screening (asymptomatic). Last mammogram was performed 1 year ago. History: Patient has history of other cancer at age 20 and is nulliparous. Taking hormonal contraceptives for 27 years beginning at age 19. Physical Findings: A clinical breast exam by your physician is recommended on an annual basis and results should be correlated with mammographic findings. MG 3D Screening Mammo W/Cad Bilateral CC and MLO view(s) were taken. Prior study comparison: November 10, 2016, bilateral MG 3d screening mammo w/cad. November 04, 2015, bilateral MG 3d screening mammo w/cad. There are scattered fibroglandular densities. There is chronic nodularity bilaterally. There is no discrete abnormality. ASSESSMENT: Benign, BI-RAD 2 RECOMMENDATION: Routine screening mammogram of both breasts in 1 year.
== END | disposition home or self-care (01) ==
LOC: RADMAMWWP 08:17
PROVIDERS: ATTEND Family Medicine
DX: Z12.31 Encounter for screening mammogram for malignant neoplasm of breast (principal)
CPT/HCPCS: 77063; 77067

== ENCOUNTER 2017-12-30 13:57 | Day surgery (SDC) | payer OTHER ==
[2017-12-27 14:31] VITALS: BMI 27.3
[~2017-12-30 13:57] MED LIST: SODIUM CHLORIDE 0.9% 1,000 ML IV SCH; ceFAZolin 1,000 MG in SODIUM CHLORIDE 0.9% IRRIGATIO 250 ML IRRIGATION ONE; ceFAZolin IN SWFI 2 GM/20 ML SYRINGE IVP ONE
[2017-12-30] MEDS: SODIUM CHLORIDE 0.9% 1,000 ML IV SCH (14:54)
[2017-12-30] MEDS ORDERED: fentaNYL (PF) 50 MCG/ML 2 ML AMP ONE (16:15)
[2017-12-30] MEDS ORDERED: MIDAZOLAM 2 MG/2 ML VIAL ONE (16:15)
[2017-12-30] MEDS ORDERED: PROPOFOL 10 MG/ML 20 ML VIAL IV ONE (16:15)
[2017-12-30] MEDS ORDERED: LIDOCAINE 1% INJ 10MG/ML (20 ML MDV) ONE (16:15)
[2017-12-30] MEDS ORDERED: IOHEXOL 350 MG/ML 50ML BOTTLE INJ ONE (16:43)
[2017-12-30] MEDS ORDERED: LIDOCAINE 1% INJ 10MG/ML (20 ML MDV) SQ ONE ×2 (16:59→17:05)
[2017-12-30] MEDS ORDERED: ACETAMINOPHEN TAB 325 MG TAB PO PRN ×2 (18:12→18:14)
[2017-12-30] MEDS ORDERED: HYDROcodone/APAP 5-325MG 1 EACH TAB PO PRN (18:14)
[2017-12-30] MEDS ORDERED: ACETAMINOPHEN IV (For NPO) 1,000 MG in EMPTY BAG 1 BAG IVPB ONE (18:30)
[2017-12-30 18:55] VITALS: RESP 18
--- NOTE | 2017-12-30 20:07 | CE ---
CARDIAC ELECTROPHYSIOLOGY REPORT This is a 47-year-old female with severe nonischemic cardiomyopathy that has not improved despite medical treatment. Her ejection fraction remains severely reduced. She has congestive heart failure, systolic, with chronic LV systolic function, narrow QRS, mildly prolonged UT interval. She is brought in for a conduction system study followed by ICD implantation. The patient was brought to the EP lab in a fasting state. Written informed consent was obtained prior to the procedure. The left shoulder area was prepped and draped as per protocol. One percent lidocaine was used for local anesthesia. Intravenous antibiotics were administered. A 4 cm incision was made in the deltopectoral area on the left side and carried down to the level of muscle. A subfascial pocket was made. Hemostasis was assured. The left axillary vein was accessed at a single point and via introducer sheath first a Katie catheter was placed in the high right atrium. Limited diagnostic EP study was performed. Sinus node recovery times at 600, 500 and 400 milliseconds were 1162, 1187 and 1087 milliseconds. Corresponding corrected sinus node recovery times were within normal limits. In the sedated state, her AV node Wenckebach block was 430 milliseconds. Her UT interval was mildly prolonged at baseline. Heart rate was in the 70s. QRS was narrow. Decision was made to proceed with a single-chamber ICD implantation at this point. The Medtronic lead was placed in the mid to low RV septum using a Mond stylet. This was a Medtronic model number 6935M, 62 cm length, and serial number [id number]. R- waves were 18 mV, pacing threshold 0.7 volts at 0.5 milliseconds. Current was 0.9 milliamps, pacing impedance of 878 ohms. Ten-volt test was negative. This lead was secured to the underlying pectoralis fascia using 2 nonabsorbable sutures. Pocket was irrigated with antibiotic solution. Lead was connected to the generator (Medtronic Visia single-chamber ICD, MRI/AFDF4, model number [id number], serial number [id number]). Leads and the generator were placed in the subfascial pocket. Device was secured to the underlying pectoralis muscle. Wound was closed in 3 layers and dressed per protocol. At this time DFT testing was withheld on account of her heart failure status, and this will be performed 3 to 4 months after maximization of medical treatment. RESULT: 1. Successful single-chamber ICD implantation. 2. Normal sinus node function. 3. Mildly abnormal AV node function. MMODL / IJN: [id number] /
[2017-12-30] MEDS: ceFAZolin IN SWFI 2 GM/20 ML SYRINGE IVP SCH (22:06)
[2017-12-31] MEDS: ceFAZolin IN SWFI 2 GM/20 ML SYRINGE IVP SCH ×3 (04:56→15:13)
--- NOTE | 2017-12-31 08:06 | XR ---
EXAMINATION TYPE: XR chest 2V DATE OF EXAM: 12/31/2017 COMPARISON: NONE HISTORY: Lead placement check TECHNIQUE: Frontal and lateral views of the chest are obtained. FINDINGS: Generator is in the left pectoral region, there is a lead in the right ventricle. No evide nt pneumothorax or pleural effusion. Cardiomediastinal silhouette within normal limits. IMPRESSION: No evident complication status post defibrillator placement
--- NOTE | 2017-12-31 08:27 | P.DS ---
Providers Attending physician: Rocco Tijerina Primary care physician: [facility] Hospital Course: Patient is doing well from cardiac standpoint. She denies any chest discomfort no dizziness lightheadedness or palpitations. The ICD site is sore there is no swelling no hematoma no significant soakage. Breath sounds are clear No rhonchi no crackles Heart sounds are normal normal S1 normal S2 no murmurs or gallops no rub Abdomen soft extremities warm Afebrile 98.1F pulse rate in the 60s and 70s, blood pressure 109/62 mmHg Impression Severe nonischemic cardiomyopathy, no improvement in LV systolic function despite medical treatment CHF class II Mild prolonged NV interval AV node Wenckebach block 430 ms in the sedated state On appropriate drug treatment Status post and dual-chamber ICD for primary prevention of sudden cardiac Plan Discharge home after completion of IV antibiotics Chest x-ray report was reviewed and is within normal limits ICD was interrogated and is within normal limits DFT testing in 3-4 months. Discussed with the patient Plan - Discharge Summary Discharge Rx Participant: No New Discharge Prescriptions: Continue Beclomethasone Dip 80 Mcg/Puff [Qvar 80 mcg] 1 puff INHALATION BID Albuterol Inhaler [Ventolin Hfa Inhaler] 2 puff INHALATION Q6H PRN PRN Reason: Shortness Of Breath Nitroglycerin Sl Tabs [Nitrostat] 0.4 mg SUBLINGUAL Q5M PRN #25 tab PRN Reason: Chest Pain Biotin 10,000 mcg PO DAILY Cyanocobalamin [Vitamin B-12] 500 mcg PO DAILY Ergocalciferol [Vitamin D2 (DRISDOL)] 50,000 unit PO Q14D Levothyroxine Sodium [Synthroid] 25 mcg PO DAILY Losartan [Cozaar] 25 mg PO W/SUPPER Metoprolol Succinate (ER) [Toprol XL] 50 mg PO DAILY Pravastatin Sodium [Pravachol] 10 mg PO W/SUPPER Sertraline [Zoloft] 50 mg PO DAILY Spironolactone [Aldactone] 25 mg PO DAILY Discharge Medication List Albuterol Inhaler [Ventolin Hfa Inhaler] 2 puff INHALATION Q6H PRN 07/14/17 [ History] Beclomethasone Dip 80 Mcg/Puff [Qvar 80 mcg] 1 puff INHALATION BID 07/14/17 [ History] Nitroglycerin Sl Tabs [Nitrostat] 0.4 mg SUBLINGUAL Q5M PRN #25 tab 07/16/17 [Rx ] Biotin 10,000 mcg PO DAILY 12/27/17 [History] Cyanocobalamin [Vitamin B-12] 500 mcg PO DAILY 12/27/17 [History] Ergocalciferol [Vitamin D2 (DRISDOL)] 50,000 unit PO Q14D 12/27/17 [History] Levothyroxine Sodium [Synthroid] 25 mcg PO DAILY 12/27/17 [History] Losartan [Cozaar] 25 mg PO W/SUPPER 12/27/17 [History] Metoprolol Succinate (ER) [Toprol XL] 50 mg PO DAILY 12/27/17 [History] Pravastatin Sodium [Pravachol] 10 mg PO W/SUPPER 12/27/17 [History] Sertraline [Zoloft] 50 mg PO DAILY 12/27/17 [History] Spironolactone [Aldactone] 25 mg PO DAILY 12/27/17 [History] Follow up Appointment(s)/Referral(s): Pradeep Desouza MD [STAFF PHYSICIAN] - 3 Weeks Activity/Diet/Wound Care/Special Instructions: PATIENT EDUCATION MATERIAL Instructions following a heart rhythm device implant. 1. Keep dressing DRY for 5 DAYS. You may cover the area with Saran or Cling Wrap, prior to a shower. 2. The dressing will be removed in the Device Clinic @ [facility]. Absorbable sutures were used to close the wound. 3. Avoid raising the [left] arm above the shoulder level. [4 week restriction] 4. Avoid arm movements, like backscratching, rubbing the head, or pulling on a cord. (4 weeks restriction) 5. Gentle range of motion movements of the shoulder, closest to the incision should be performed to avoid a frozen shoulder. (Pendulum exercises of the shoulder) 6. The opposite arm may be used freely. 7. Avoid driving for 7 days. 8. Avoid activities such as golfing, swimming, weed whacking, lifting more than 10 pounds weight, bowling, gymnastics and weight training/lifting. (6 weeks restriction) 9. Activities such as wood chopping with an axe, pull-ups in the gymnasium, power lifting, arc-welding, being close to home induction cooktops will always be a problem. 10. Arm sling is a mere reminder not to raise the arm above the head. However you do not need to keep the arm completely immobilized. Your free to move the arm and use it and for normal activities. In case of any problems, please call [facility], Darrian Garcia, @ [phone], Attention: Device Clinic Discharge home after completion of for IV antibiotics. Follow up in the device clinic in 5 days. Follow-up with Dr. Pina as scheduled Follow-up with Dr. Chavarria as scheduled Discharge Disposition: HOME SELF-CARE
[2017-12-31] MEDS: SODIUM CHLORIDE 0.9% 1,000 ML IV SCH (10:46)
[2017-12-31 11:59] VITALS: BP 102/57; PULSE 78; TEMP 98.6
== END 2017-12-31 15:49 | disposition home or self-care (01) ==
LOC: CATHEP 13:57 → 3OBS 18:03 → CATHEP 12-31 15:49
PROVIDERS: ATTEND Internal Medicine Clinical Cardiac Electrophysiology
DX: I42.8 Other cardiomyopathies (principal); I50.22 Chronic systolic (congestive) heart failure; I44.1 Atrioventricular block, second degree; Z00.6 Encounter for examination for normal comparison and control in clinical research program; Z87.891 Personal history of nicotine dependence; Z79.899 Other long term (current) drug therapy
CPT/HCPCS: 93619; 33249; 81025; 71046; C1769 ×2; C1895; C1722; J0690 ×3; J2001; Q9967

== ENCOUNTER 2018-05-02 06:14 | Day surgery (SDC) | payer OTHER ==
[2018-04-25 13:27] VITALS: BMI 26.7
[2018-05-02] MEDS ORDERED: LACTATED RINGERS 1,000 ML IV SCH (06:15)
[2018-05-02] MEDS ORDERED: LIDOCAINE 1% 20 ML VIAL (10MG/ML) FOR IV START INTRADERMA PRN (06:15)
[2018-05-02] MEDS ORDERED: MIDAZOLAM 2 MG/2 ML VIAL IV PRN (06:15)
[2018-05-02] MEDS ORDERED: IV FLUID CONTINUATION 500 ML IV ONE (07:14)
[2018-05-02 07:15] VITALS: PULSE 81; TEMP 98
[2018-05-02] MEDS ORDERED: SODIUM CHLORIDE 0.9% 1,000 ML IV SCH (07:15)
[2018-05-02 07:34] LABS: Anion Gap 8 mmol/L; Blood Urea Nitrogen 12 mg/dL (7-17); Calcium 9.2 mg/dL (8.4-10.2); Carbon Dioxide 23 mmol/L (22-30); Chloride 108 mmol/L (98-107); Glucose 99 mg/dL (74-99); Sodium 139 mmol/L (137-145)
[2018-05-02] MEDS ORDERED: PROPOFOL 10 MG/ML 20 ML VIAL IV ONE (07:34)
[2018-05-02 07:43] LABS: Potassium 4.8 mmol/L (3.5-5.1)
--- NOTE | 2018-05-02 07:53 | P.PCN ---
Preoperative Diagnosis: Procedure ICD testing and anesthesia Indications for procedure recent ICD implant for severe cardio myopathy systolic dysfunction congestive heart failure. Medtronic single-chamber ICD R waves 16.6 mV pacing threshold 0.5 V at 0.4 ms, pacing impedance 513 ohms, shocking impedance 62 ohms Under anesthesia, shock and T wave protocol was used to induce ventricular fibrillation. This was adequately and appropriately detected at least sensitivity and successfully internally defibrillated with a 20 J shock after a 10 J shock failed to defibrillate the patient to sinus rhythm Charge time 4.2 seconds delivered energy 20 J shocking impedance 61 ohms The device was then re-programmed Sensitivity at 0.3 mV Appropriate antitachycardia pacing cardioversion defibrillations programmed with first cardioversion at 20 J and first defibrillation at 35 J Impression Severe cardio myopathy with congestive heart failure status post single chamber ICD High DFT with successful defibrillation at 20 J 10 J failed to defibrillate the patient Suggest Maximal medical treatment for heart failure Anesthesia: MAC Condition: stable Disposition: same day
[2018-05-02 09:50] VITALS: RESP 18
[2018-05-02 09:53] VITALS: BP 117/58
== END 2018-05-02 09:15 | disposition home or self-care (01) ==
LOC: CATHEP 06:14
PROVIDERS: ATTEND Internal Medicine Clinical Cardiac Electrophysiology
DX: I50.22 Chronic systolic (congestive) heart failure (principal); I42.8 Other cardiomyopathies; Z87.891 Personal history of nicotine dependence; Z95.810 Presence of automatic (implantable) cardiac defibrillator; Z79.51 Long term (current) use of inhaled steroids; Z79.899 Other long term (current) drug therapy; Z82.49 Family history of ischemic heart disease and other diseases of the circulatory system; Z79.82 Long term (current) use of aspirin; Z79.52 Long term (current) use of systemic steroids
CPT/HCPCS: 93642; 80048; 81025; J2704

== ENCOUNTER → 2018-11-15 | Outpatient (CLI) | payer OTHER ==
--- NOTE | 2018-11-15 14:36 | US ---
EXAMINATION TYPE: US venous doppler duplex LE DATE OF EXAM: 11/15/2018 2:24 PM COMPARISON: NONE CLINICAL HISTORY: I10 Essential hypertension; Z86.79 Hx of CHF/. HTN. CHF. Patient states having fee l swelling. No redness. No leg swelling. No hx of blood clots. No blood thinners. SIDE PERFORMED: Bilateral TECHNIQUE: The lower extremity deep venous system is examined utilizing real time linear array sonog radha with graded compression, doppler sonography and color-flow sonography. VESSELS IMAGED: External Iliac Vein (EIV) Common Femoral Vein Deep Femoral Vein Greater Saphenous Vein * Femoral Vein Popliteal Vein Small Saphenous Vein * Proximal Calf Veins (* superficial vessels) Right Leg: Negative for DVT Left Leg: Negative for DVT IMPRESSION: 1. Bilateral lower extremity ultrasound negative for deep venous thrombosis.
--- NOTE | 2018-11-15 15:33 | US ---
EXAMINATION TYPE: US thyroid st tissue head/neck DATE OF EXAM: 11/15/2018 COMPARISON: NONE CLINICAL HISTORY: E03.9 ACQUIRED HYPOTHYROIDISM. Hypothyroidism. On thyroid meds. GLAND SIZE: Right Lobe: 4.4 x 1.5 x 1.2 cm Overall Parenchyma: heterogenous Left Lobe: 3.6 x 1.2 x 1.0 cm Overall Parenchyma: heterogeneous Isthmus Thickness: 0.3 cm NODULES RIGHT: # of nodules measured on right: 0 LEFT: # of nodules measured on left: 0 ISTHMUS: # of nodules measured in the isthmus: 0 Bilateral neck scanned, no evidence of lymphadenopathy. IMPRESSION: 1. Unremarkable thyroid ultrasound
== END ==
LOC: RADUSWWP 13:37
PROVIDERS: ATTEND Family Medicine
DX: E03.9 Hypothyroidism, unspecified (principal); M79.89 Other specified soft tissue disorders; I10 Essential (primary) hypertension; Z86.79 Personal history of other diseases of the circulatory system
CPT/HCPCS: 76536; 93970

== ENCOUNTER → 2018-11-21 | Outpatient (CLI) | payer OTHER ==
--- NOTE | 2018-11-23 09:51 | MM ---
Reason for exam: screening (asymptomatic). Last mammogram was performed 1 year ago. History: Patient has history of other cancer at age 20 and is nulliparous. Took hormonal contraceptives for 27 years beginning at age 19. Physical Findings: A clinical breast exam by your physician is recommended on an annual basis and results should be correlated with mammographic findings. MG 3D Screening Mammo W/Cad Bilateral CC and MLO view(s) were taken. Prior study comparison: November 16, 2017, bilateral MG 3d screening mammo w/cad. November 10, 2016, bilateral MG 3d screening mammo w/cad. There are scattered fibroglandular densities. Superior posterior asymmetric density appears more defined and does not entirely disperse on 3D images. Pacemaker generator overlying the left pectoralis. ASSESSMENT: Incomplete: need additional imaging evaluation, BI-RAD 0 RECOMMENDATION: Special view mammogram of the right breast. If lesion persists on supplemental views, image directed ultrasound is recommended. [facility] will attempt to contact patient to return for supplemental views and ultrasound if indicated.
== END ==
LOC: RADMAMWWP 11:54
PROVIDERS: ATTEND Family Medicine
DX: Z12.31 Encounter for screening mammogram for malignant neoplasm of breast (principal)
CPT/HCPCS: 77063; 77067

== ENCOUNTER → 2018-12-06 | Outpatient (CLI) | payer OTHER ==
--- NOTE | 2018-12-06 10:01 | MM ---
Reason for exam: additional evaluation requested from abnormal screening. Last mammogram was performed less than 1 month ago. History: Patient has history of other cancer at age 20 and is nulliparous. Took hormonal contraceptives beginning at age 19. Physical Findings: Nurse did not find any significant physical abnormalities on exam. MG 3D Work Up W/Cad RT ML and spot compression MLO view(s) were taken of the right breast. Prior study comparison: November 21, 2018, bilateral MG 3d screening mammo w/cad. November 16, 2017, bilateral MG 3d screening mammo w/cad. No distinct lesion persists at area of concern left breast posterior depth upper aspect. These results were verbally communicated with the patient and result sheet given to the patient on 12/06/18. ASSESSMENT: Negative, BI-RAD 1 RECOMMENDATION: Return to routine screening mammogram schedule for both breasts. Back on schedule.
== END | disposition home or self-care (01) ==
LOC: RADMAMWWP 08:58
PROVIDERS: ATTEND Family Medicine
DX: R92.8 Other abnormal and inconclusive findings on diagnostic imaging of breast (principal)
CPT/HCPCS: 77065; G0279; 77061

== ENCOUNTER → 2020-08-12 | Outpatient (CLI) | payer OTHER ==
--- NOTE | 2020-08-14 10:46 | MM ---
Reason for exam: screening (asymptomatic). Last mammogram was performed 1 year and 8 months ago. History: Patient has history of other cancer at age 20 and is nulliparous. Took hormonal contraceptives beginning at age 19. Physical Findings: A clinical breast exam by your physician is recommended on an annual basis and results should be correlated with mammographic findings. MG 3D Screening Mammo W/Cad Bilateral CC and MLO view(s) were taken. Prior study comparison: December 06, 2018, right breast MG 3d work up w/cad RT. November 21, 2018, bilateral MG 3d screening mammo w/cad. There are scattered fibroglandular densities. No significant changes when compared with prior studies. ASSESSMENT: Negative, BI-RAD 1 RECOMMENDATION: Routine screening mammogram of both breasts in 1 year.
== END | disposition home or self-care (01) ==
LOC: RADMAMWWP 07:59
PROVIDERS: ATTEND Obstetrics & Gynecology
DX: Z12.31 Encounter for screening mammogram for malignant neoplasm of breast (principal)
CPT/HCPCS: 77063; 77067

== ENCOUNTER → 2021-09-16 | Outpatient (CLI) | payer OTHER ==
--- NOTE | 2021-09-17 14:45 | MM ---
Reason for exam: screening (asymptomatic). Last mammogram was performed 1 year and 1 month ago. History: Patient has history of other cancer at age 20 and is nulliparous. Took hormonal contraceptives beginning at age 19. Physical Findings: A clinical breast exam by your physician is recommended on an annual basis and results should be correlated with mammographic findings. MG 3D Screening Mammo W/Cad Bilateral CC and MLO view(s) were taken. Prior study comparison: August 12, 2020, bilateral MG 3d screening mammo w/cad. December 06, 2018, right breast MG 3d work up w/cad RT. There are scattered fibroglandular densities. No significant changes when compared with prior studies. ASSESSMENT: Benign, BI-RAD 2 RECOMMENDATION: Routine screening mammogram of both breasts in 1 year.
== END | disposition home or self-care (01) ==
LOC: RADMAMWWP 07:32
PROVIDERS: ATTEND Family Medicine
DX: Z12.31 Encounter for screening mammogram for malignant neoplasm of breast (principal)
CPT/HCPCS: 77063; 77067

== ENCOUNTER 2021-11-04 07:40 | Day surgery (SDC) | payer OTHER ==
[2021-10-31 10:34] VITALS: BMI 26.4
[~2021-11-04 07:40] MED LIST changes: +LACTATED RINGERS 1,000 ML IV SCH; -SODIUM CHLORIDE 0.9% 1,000 ML IV SCH; -ceFAZolin 1,000 MG in SODIUM CHLORIDE 0.9% IRRIGATIO 250 ML IRRIGATION ONE; -ceFAZolin IN SWFI 2 GM/20 ML SYRINGE IVP ONE
[2021-11-04 08:05] VITALS: TEMP 97.5
[2021-11-04 08:16] LABS: Glucose,Whole Blood 135 mg/dL (75-99)
[2021-11-04] MEDS ORDERED: LIDOCAINE 1% INJ 10MG/ML (20 ML MDV) ONE (08:20)
[2021-11-04] MEDS ORDERED: PROPOFOL 10 MG/ML 20 ML VIAL IV ONE (08:20)
--- NOTE | 2021-11-04 08:24 | P.GSHP ---
History of Present Illness H&P Date: 11/04/21 Chief Complaint: Colon cancer screening 51-year-old here today for colonoscopy. She has not had 1 previously. No bowel complaints. No family history of colon cancer. Past Medical History Past Medical History: Heart Failure, COPD, Diabetes Mellitus, Pneumonia, Skin Disorder, Thyroid Disorder Additional Past Medical History / Comment(s): see Dr Tijerina H&P, hx migraines, skin disorder-"gets blood clots under skin," History of Any Multi-Drug Resistant Organisms: None Reported Past Surgical History: AICD, Heart Catheterization, Pacemaker Additional Past Surgical History / Comment(s): lung biopsy, Past Anesthesia/Blood Transfusion Reactions: Motion Sickness Type of Cardiac Device: Permanent Pacemaker, AICD Device Placement Date:: 12/30/2017 Smoking Status: Current every day smoker - Past Family History Mother Family Medical History: Cancer, Deep Vein Thrombosis (DVT) Additional Family Medical History / Comment(s): . Father Family Medical History: Coronary Artery Disease (CAD) (coronary artery disease at age 75) Additional Family Medical History / Comment(s): Stents Medications and Allergies Home Medications Medication Instructions Recorded Confirmed Type Albuterol Inhaler (Mhu) [Ventolin 2 puff INHALATION Q6H PRN 07/14/17 10/31/21 History Hfa Inhaler (Mhu)] Beclomethasone Dip 80 Mcg/Puff 1 puff INHALATION BID PRN 07/14/17 10/31/21 History [Qvar 80 mcg] Nitroglycerin Sl Tabs [Nitrostat] 0.4 mg SUBLINGUAL Q5M PRN #25 tab 07/16/17 10/31/21 Rx Biotin 10,000 mcg PO DAILY 12/27/17 10/31/21 History Cyanocobalamin [Vitamin B-12] 500 mcg PO DAILY 12/27/17 10/31/21 History Levothyroxine Sodium [Synthroid] 25 mcg PO DAILY 12/27/17 10/31/21 History Losartan [Cozaar] 25 mg PO W/SUPPER 12/27/17 10/31/21 History Pravastatin Sodium [Pravachol] 10 mg PO W/SUPPER 12/27/17 10/31/21 History Sertraline [Zoloft] 50 mg PO DAILY 12/27/17 10/31/21 History Spironolactone [Aldactone] 25 mg PO 1200 12/27/17 10/31/21 History Cyclobenzaprine [Flexeril] 10 mg PO DAILY PRN 04/25/18 10/31/21 History Metoprolol Tartrate [Lopressor] 50 mg PO DAILY 04/25/18 10/31/21 History metFORMIN HCL 500 mg PO DAILY 10/31/21 10/31/21 History Allergies Allergy/AdvReac Type Severity Reaction Status Date / Time atorvastatin Allergy PAIN IN Verified 11/04/21 08:00 LEGS Surgical - Exam Vital Signs Temp Pulse Resp BP Pulse Ox 97.5 F L 90 20 115/67 97 11/04/21 08:04 11/04/21 08:04 11/04/21 08:04 11/04/21 08:04 11/04/21 08:04 Physical exam: General: Well-developed, well-nourished HEENT: Normocephalic, sclerae nonicteric Abdomen: Nontender, nondistended Extremities: No edema Neuro: Alert and oriented Results - Labs Abnormal Lab Results - Last 24 Hours (Table) 11/04/21 Range/Units 08:15 POC Glucose (mg/dL) 135 H (75-99) mg/dL Assessment and Plan (1) Colon cancer screening Narrative/Plan: Will proceed with colonoscopy at this time Current Visit: Yes Status: Acute Code(s): Z12.11 - ENCOUNTER FOR SCREENING FOR MALIGNANT NEOPLASM OF COLON SNOMED Code(s): 483555594
--- NOTE | 2021-11-04 08:40 | P.PCN ---
Date of Procedure: 11/04/21 Procedure(s) Performed: PREOPERATIVE DIAGNOSIS: Colon cancer screening POSTOPERATIVE DIAGNOSIS: Transverse colon polyp PROCEDURE: Colonoscopy with snare polypectomy ANESTHESIA: MAC SURGEON: Hernandez Hamilton M.D. SPECIMENS: Polyp ENDOSCOPIC PROCEDURE: The patient was placed on the endoscopy table in the left decubitus position. The Olympus colonoscope was inserted into the anus and passed under direct visualization to the base of the cecum. The appendiceal orifice was visualized. From that point the scope was slowly withdrawn inspecting all surfaces carefully. There were no neoplastic inflammatory or polypoid lesions throughout the cecum or ascending colon. In the transverse colon distally at 65 cm there was noted to be a small 5 mm polyp that was removed using the snare with cautery technique. The remainder of the transverse descending sigmoid and rectum appeared normal. There was no visible diverticulosis. Digital rectal examination was normal. The patient was taken to the recovery room in stable condition per anesthesia guidelines. RECOMMENDATIONS: Await biopsy results. Anticipate follow-up colonoscopy 5 years.
[2021-11-04 09:06] VITALS: BP 126/65; PULSE 83; RESP 16
== END 2021-11-04 09:21 | disposition home or self-care (01) ==
LOC: ORWHC2ENDO 07:40
PROVIDERS: ATTEND Surgery
DX: Z12.11 Encounter for screening for malignant neoplasm of colon (principal); D12.3 Benign neoplasm of transverse colon
CPT/HCPCS: 45385; 81025; 88305; J2001; J2704

== ENCOUNTER → 2022-09-10 | Outpatient (CLI) | payer OTHER ==
--- NOTE | 2022-09-10 11:01 | US ---
EXAMINATION TYPE: US transvaginal DATE OF EXAM: 09/10/2022 COMPARISON: NONE CLINICAL HISTORY: 51-year-old female ENCOUNTER FOR TEST, RESULT POSITIVE. Pain. TECHNIQUE: Transvaginal (TV). FINDINGS: EXAM MEASUREMENTS: Uterus: 8.1 x 4.0 x 4.7 cm Endometrial Stripe: .3 cm 1. Uterus: Anteverted and otherwise wnl. There are numerous cervical nabothian cysts measuring up t o 1.0 cm. 2. Endometrium: wnl 3. Right Ovary: Obscured by overlying bowel gas 4. Left Ovary: Obscured by overlying bowel gas 5. Bilateral Adnexa: wnl 6. Posterior cul-de-sac: wnl IMPRESSION: Numerous cervical nabothian cyst incidentally seen. Unable to visualize either ovary due to bowel gas . Normal, thin endometrial stripe.
== END | disposition home or self-care (01) ==
LOC: RADUSWWP 07:31
PROVIDERS: ATTEND Family Medicine
DX: Z32.01 Encounter for pregnancy test, result positive (principal); N88.8 Other specified noninflammatory disorders of cervix uteri
CPT/HCPCS: 76830

== ENCOUNTER → 2022-09-17 | Outpatient (CLI) | payer OTHER ==
--- NOTE | 2022-09-18 07:57 | MM ---
Reason for Exam: Screening (asymptomatic). Last screening mammogram was performed 12 month(s) ago. Patient History: Menarche at age 14. Patient has no children. Premenopausal. Other cancer, age 20. Hormonal Contraceptives, from age 19 until age 46. Risk Values: Kaleigh 5 year model risk: 1.1%. NCI Lifetime model risk: 9.9%. Prior Study Comparison: 11/10/2016 Bilateral Screening Mammogram, [facility]. 11/16/2017 Bilateral Screening Mammogram, [facility]. 11/21/2018 Bilateral Screening Mammogram, [facility]. 12/06/2018 Right Diagnostic Mammogram, [facility]. 08/12/2020 Bilateral Screening Mammogram, [facility]. 09/16/2021 Bilateral Screening Mammogram, [facility]. Tissue Density: There are scattered fibroglandular densities. Findings: Analyzed By CAD. Left axillary pacemaker device is partially imaged. There is no suspicious new group of microcalcifications or new suspicious mass in either breast. Overall Assessment: Benign, BI-RAD 2 Management: Screening Mammogram of both breasts in 1 year. A clinical breast exam by your physician is recommended on an annual basis and results should be correlated with mammographic findings. Electronically signed and approved by: Suraj Hernandez M.D.
== END | disposition home or self-care (01) ==
LOC: RADMAMWWP 07:57
PROVIDERS: ATTEND Family Medicine
DX: Z12.31 Encounter for screening mammogram for malignant neoplasm of breast (principal)
CPT/HCPCS: 77063; 77067

== ENCOUNTER → 2024-02-21 | Outpatient (CLI) | payer OTHER ==
--- NOTE | 2024-02-21 13:45 | MM ---
Reason for Exam: Screening (asymptomatic). Last mammogram was performed 1 year(s) and 5 month(s) ago. Patient History: Menarche at age 14. Patient has no children. Premenopausal. Other cancer, age 20. Hormonal Contraceptives, from age 19 until age 46. Risk Values: Kaleigh 5 year model risk: 1.2%. NCI Lifetime model risk: 9.6%. Prior Study Comparison: 08/12/2020 Bilateral Screening Mammogram, [facility]. 09/16/2021 Bilateral Screening Mammogram, [facility]. 09/17/2022 Bilateral MG 3D screening mammo w/cad, [facility]. Tissue Density: There are scattered areas of fibroglandular density. Findings: Analyzed By CAD. Right breast: There is no suspicious group of microcalcifications or new suspicious mass. Left breast: There is no suspicious group of microcalcifications or new suspicious mass. Overall Assessment: Negative, BI-RAD 1 Management: Screening Mammogram of both breasts in [address] [facility] will attempt to contact patient to return for supplemental views and ultrasound if indicated. Patient should continue monthly self-breast exams. A clinical breast exam by your physician is recommended on an annual basis. This exam should not preclude additional follow-up of suspicious palpable abnormalities. Note on Kaleigh scores and lifetime risk: 1. A Kaleigh score greater than 3% is considered moderate risk. If this is the case, consider specialist referral to assess eligibility for a risk reducing agent. 2. If overall lifetime risk for the development of breast cancer is 20% or higher, the patient may qualify for future screening with alternating mammogram and breast MRI. Electronically signed and approved by: Anil Leo DO
== END | disposition home or self-care (01) ==
LOC: RADMAMWWP 08:24
PROVIDERS: ATTEND Family Medicine
DX: Z12.31 Encounter for screening mammogram for malignant neoplasm of breast (principal)
CPT/HCPCS: 77063; 77067

== ENCOUNTER → 2025-03-23 | Outpatient (CLI) | payer OTHER ==
--- NOTE | 2025-03-23 08:28 | MM ---
Reason for Exam: Screening (asymptomatic). Last mammogram was performed 1 year(s) and 1 month(s) ago. Patient History: Menarche at age 14. Patient has no children. Premenopausal. Other cancer, age 20. Hormonal Contraceptives, from age 19 until age 46. Risk Values: Kaleigh 5 year model risk: 1.2%. NCI Lifetime model risk: 9.4%. Prior Study Comparison: 09/16/2021 Bilateral Screening Mammogram, [facility]. 09/17/2022 Bilateral MG 3D screening mammo w/cad, [facility]. 02/21/2024 Bilateral MG 3D screening mammo w/cad, [facility]. Tissue Density: There are scattered areas of fibroglandular density. Findings: Analyzed By CAD. There is no suspicious group of microcalcifications or new suspicious mass in either breast. Cardiac device limits portions of the left breast. Subcentimeter chronic nodularity outer margin left breast stable from multiple prior exams. Overall Assessment: Benign, BI-RAD 2 Management: Screening Mammogram of both breasts in 1 year. . Patient should continue monthly self-breast exams. A clinical breast exam by your physician is recommended on an annual basis. This exam should not preclude additional follow-up of suspicious palpable abnormalities. Note on Kaleigh scores and lifetime risk: 1. A Kaleigh score greater than 3% is considered moderate risk. If this is the case, consider specialist referral to assess eligibility for a risk reducing agent. 2. If overall lifetime risk for the development of breast cancer is 20% or higher, the patient may qualify for future screening with alternating mammogram and breast MRI. [facility], , 03/23/2025 8:25 AM. Electronically signed and approved by: Layton Crawley M.D. Radiologis
== END | disposition home or self-care (01) ==
LOC: RADMAMWWP 08:11
PROVIDERS: ATTEND Family Medicine
DX: Z12.31 Encounter for screening mammogram for malignant neoplasm of breast (principal); R92.323 Mammographic fibroglandular density, bilateral breasts; Z92.0 Personal history of contraception
CPT/HCPCS: 77063; 77067